=== PATIENT | male | born 1970 | race Caucasian/White ===

== ENCOUNTER 2016-08-28 05:59 | Inpatient (IN) | payer OTHER ==
--- NOTE | 2016-08-26 21:53 | GHP ---
[f rep st] PREOP HISTORY AND PHYSICAL Amended report DATE OF ADMISSION: 08/28/2016 ADMISSION DIAGNOSIS: Severe right hip degenerative arthritis. HISTORY OF PRESENT ILLNESS: The patient is a 45-year-old male who will be admitted for a right hip resurfacing arthroplasty with Dr. Marie at the [facility] on August 28, 2016. The patient has had progressive right hip pain over the past several years. In 2010, the patient underwent a left hip resurfacing arthroplasty with a very good result. Because of his progressive pain, advanced arthritis, and recalcitrant response to conservative therapies, the patient has decided to proceed with the hip resurfacing arthroplasty. PAST MEDICAL HISTORY: Noncontributory. No history of PE, DVT, CAD or previous MRSA infection. He does have a history of elevated cholesterol. CURRENT PRESCRIPTION MEDICATIONS: None. OVER THE COUNTER MEDICINES: Aleve, niacin, omega-3, vitamin E and red yeast rice. ALLERGIES: He has no known drug allergies. SOCIAL HISTORY: The patient is . 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 No history of tobacco use. Moderate alcohol use. His activities include hiking, biking, skiing, surfing and golf. FAMILY HISTORY: Noncontributory. PAST SURGICAL HISTORY: Left hip resurfacing arthroplasty in 2010. PHYSICAL EXAMINATION: GENERAL: He is a healthy-appearing 45-year-old male. VITALS: Height 5 feet 8 inches tall, weight 168 pounds. BMI 25.5. HEENT: Head is normocephalic, atraumatic. Eyes are PERRLA. Conjunctivae and sclerae are clear. Mouth: He has good oral hygiene without any loose teeth. HEART: Regular rate and rhythm without murmurs, gallops, rubs. LUNGS: Clear. EXTREMITIES: Pertinent findings are limited to the patient's right hip. He has full right hip extension, 90 degrees of flexion, 0 degrees of internal rotation, 20 degrees of external rotation, and 30 degrees of abduction. DIAGNOSTIC IMAGING: Recent x-rays taken of the patient's right hip shows bone- on-bone degenerative arthritis with increased subchondral sclerosis, peripheral osteophyte formation, and a few subcortical cyst formation. IMPRESSION ON ADMISSION: Severe [id number] degenerative arthritis of the right hip. PLAN: The plan will be for the patient to undergo a right hip resurfacing arthroplasty with Dr. Marie. The surgery has been described to the patient including the risks, benefits, and expectations. He understands the controversy surrounding metal on metal bearing surfaces. He understands the risk of dislocation, sciatic nerve injury, and infection. All his questions have been answered. He consents to surgery here in the office today. Copy requested to: [facility] JOSE G Sprague /[id number]/MODL Add acc#, 08/27/16, jason [place]
[~2016-08-28 05:59] MED LIST: LIDOCAINE 1% 2 ML INJ ONE
[2016-08-28] MEDS ORDERED: DEXAMETHASONE 4 MG/ML VIAL IVP ONE (06:00)
[2016-08-28] MEDS ORDERED: POVIDONE-IODINE 20 ML in SODIUM CL IRRIG SOLUTION 500 ML IRR ONE (06:00)
[2016-08-28] MEDS ORDERED: ACETAMINOPHEN 325 MG TAB PO ONE (06:00)
[2016-08-28] MEDS ORDERED: CHLORHEXIDINE GLUC HIBICLENS 118 ML BTL TP ONE (06:00)
[2016-08-28] MEDS ORDERED: CEFAZOLIN 2 GM/DEXTR 100 ML IV ONE (06:00)
[2016-08-28] MEDS ORDERED: TRANEXAMIC ACID 1,500 MG in NS 100 ML IV ONE (06:00)
[2016-08-28] MEDS ORDERED: FAMOTIDINE 20 MG TAB PO ONE (06:00)
[2016-08-28] MEDS ORDERED: ROPI/epiNEPH/KETOROLAC JOINT COCKTAIL IU ONE (06:00)
[2016-08-28] MEDS ORDERED: LR 1,000 ML IV ONE (06:05)
[2016-08-28] MEDS ORDERED: LIDOCAINE 1% 5 ML SDV ID PRN (06:05)
[2016-08-28] MEDS ORDERED: fentaNYL 100 MCG/2 ML INJ ONE (06:48)
[2016-08-28] MEDS ORDERED: PROPOFOL/EMULSION 500 MG/50 ML BOTTLE IV ONE (06:49)
[2016-08-28] MEDS ORDERED: MIDAZOLAM 2 MG/2 ML VIAL ONE ×2 (06:49→07:10)
[2016-08-28] MEDS ORDERED: SKIN ADHESIVE (DERMABOND) 1 EACH TP ONE (06:50)
[2016-08-28] MEDS ORDERED: ceFAZolin 1 GM/5 ML SYR ONE (06:51)
[2016-08-28] MEDS ORDERED: PHENYLEPHRINE HCL 100 MCG/ML SYR ONE (07:56)
[2016-08-28] MEDS ORDERED: ONDANSETRON 4 MG/2 ML VIAL ONE (07:56)
[2016-08-28] MEDS ORDERED: PROPOFOL 200 MG/20 ML VIAL ONE (08:35)
--- NOTE | 2016-08-28 08:58 | POSTOPPROG ---
Post Op Note Date of Operation: 08/28/16 Surgeon: Cody Marie Pluck Trimmer: Sreekanth Anesthesiologist: Marek Anesthesia: IV Sedation, Spinal Post-op Diagnosis: R hip arthritis Procedure: R BHR Inf/Abcess present in the surg proc area at time of surgery?: No EBL: 100-500
[2016-08-28] MEDS ORDERED: KETOROLAC 30 MG/1 ML SDV IVP PRN (09:08)
[2016-08-28] MEDS ORDERED: POLYETHYLENE GLYCOL 3350 17 GM PKT PO PRN (09:08)
[2016-08-28] MEDS ORDERED: CYCLOBENZAPRINE 10 MG TAB PO PRN (09:08)
[2016-08-28] MEDS ORDERED: PROMETHAZINE HCL 25 MG SUPPR PR PRN (09:08)
[2016-08-28] MEDS ORDERED: ONDANSETRON 4 MG/2 ML VIAL IVP PRN (09:08)
[2016-08-28] MEDS ORDERED: DIPHENOXYLATE/ATROPINE LOMOTIL 1 TAB PO PRN (09:08)
[2016-08-28] MEDS ORDERED: METOCLOPRAMIDE 10 MG/2 ML VIAL IVP PRN (09:08)
[2016-08-28] MEDS ORDERED: MAGNESIUM HYDROXIDE 30 ML UDCUP PO PRN (09:08)
[2016-08-28] MEDS ORDERED: diphenhydrAMINE 25 MG CAP PO PRN (09:08)
[2016-08-28] MEDS ORDERED: PHARMACY PAIN CONSULT 1 EA MISC PRN (09:08)
[2016-08-28] MEDS ORDERED: NS 500 ML IV PRN (09:08)
[2016-08-28] MEDS ORDERED: ONDANSETRON DISINTEGRATING 4 MG TAB PO PRN (09:08)
[2016-08-28] MEDS ORDERED: traMADol 50 MG TAB PO PRN (09:08)
[2016-08-28] MEDS ORDERED: LACTULOSE 20 GM/30 ML UDCUP PO PRN (09:08)
[2016-08-28] MEDS ORDERED: TEMAZEPAM 15 MG CAP PO PRN (09:08)
[2016-08-28] MEDS ORDERED: BISACODYL 10 MG SUPP PR PRN (09:08)
[2016-08-28] MEDS ORDERED: LR 1,000 ML IV SCH (09:30)
--- NOTE | 2016-08-28 10:02 | GOP ---
[f rep st] OPERATIVE REPORT DATE OF OPERATION: 08/28/2016 SURGEON: Cody Marie MD BURNER OPERATOR: Armando Naqvi. Mamadou Salinas. ANESTHESIA: Combination of Marcaine spinal, and IV sedation. ANESTHESIOLOGIST: Dr. Kiana Jara. PREOPERATIVE DIAGNOSIS: Right hip severe degenerative arthritis. POSTOPERATIVE DIAGNOSIS: Right hip severe degenerative arthritis. PROCEDURE PERFORMED: Right hip Yariel hip resurfacing arthroplasty. FINDINGS: ESTIMATED BLOOD LOSS: About 300 mL. I used a Sa[employer]hew [place] hip resurfacing system. The acetabular component was 56 mm in diameter and press fit. The femoral head was 50 mm and cemented. He was awakened from anesthesia a nd rolled to the supine position on his [facility]. A long-leg compressive stocking and SCD we re applied to the operative leg. He wore a stocking and SCD on the opposite leg during the procedur e. An abduction pillow was placed between his knees. He was taken to PACU in satisfactory conditio n. There were no recognized intraoperative complications. The sponge and needle count were correct on 2 occasions. Armando Naqvi and Mamadou Salinas acted as surgical assistants. Their assistance was a medical aime putnam. DESCRIPTION OF PROCEDURE: The patient was given 2 g of IV Ancef preoperatively within 60 minutes of surgery. He also received IV tranexamic acid at a dose of 20 mg/kg. He was placed on the [facility] g room table and given spinal anesthesia with Marcaine by Dr. Jara. He was then placed supine an d given IV sedation. A Martinez catheter was not used. He wore a compressive stocking and SCD on the nonoperative leg. He was rolled to left lateral decubitus position. An axillary roll was used and all pressure points were carefully padded. The position was secured with the pegboard table attachm ent. I was careful to lock his pelvis in a vertical position. His perineum was isolated with plast ic adhesive drapes. The right hip and right lower extremity were prepped with ChloraPrep. They wer e draped free using sterile sheets, stockinette, and Ioban plastic drape. The [employer] time-out was performed to verify the correct patient identity and the correct surgical side and site. The [place] time-out was also performed. I made a 6-7 inch straight oblique posterolateral hip skin incision. The subcutaneous tissues were sharply divided and hemostasis was obtained using electrocautery. The fascia isabelle was identified an d split along the axis of its fibers. I then curved posteriorly and proximally and split the fascia of the gluteus faith and bluntly split the muscle fibers in line with their orientation. His sci atic nerve was identified and protected throughout the procedure. The Charnley self-retaining retra ctor was inserted. The external rotators and the posterior hip capsule were divided as separate lay ers at the base of the femoral neck, tagged, and reflected posteriorly. The gluteus faith was div ided and tagged in order to improve exposure and release tension on the sciatic nerve. The hip was dislocated posteriorly. I used a sizing gauge to check the diameter of the neck and concluded that 50 mm was the proper head size. I performed a circumferential capsulotomy. I was able to retract t he femoral head anteriorly and superiorly and hold it out of place with appropriate retractors. The remnant of his damaged labrum was completely excised. His acetabulum was reamed sequentially up to 56 mm. I selected the [place] monoblock porous-coated acetabular component with an outside diam eter of 56 mm. This was firmly impacted and was a very tight fit. I was careful to determine prope r inclination and anteversion. I used the transverse acetabular ligament and other acetabular bony landmarks to help me determine proper cup orientation. Osteophytes were removed with a rongeur and osteotome. I was careful to leave a good lip of bone and capsule extending beyond the anterior-infe rior lip of the metal cup. I then returned to preparation of the femoral head. Using appropriate jigs and guides, I inserted a guide pin into the femoral head and neck. I was careful to position in such a way that there would be no notching of the neck. The large sterile metal goniometer was used to check the neck shaft an gle. I reamed over the guide pin and inserted the reaming guide. I then used the cylindrical reame r down to the head and neck junction. This was followed by the flat reamer and the chamfer reamer. The head was sized for 50 mm. There was no impingement or damage to the neck. He had large anteri or neck osteophytes, which were removed with a rongeur. I drilled a small hole in the lesser trocha nter and inserted a suction cannula to create negative pressure in the medullary canal. Small holes were drilled on the flattened chamfer surfaces of the prepared head for cement anchors. The head w as thoroughly cleaned with the pulsating lavage and carefully dried. I used the CarboJet device to blow dry the cancellous surfaces. A single batch of Simplex cement with tobramycin was mixed. At a bout 50 seconds, I poured the liquid cement into the head component, inserted on the femoral head an d impacted it into place. Excess cement was removed before it hardened. The acetabulum was irrigat ed, cleaned and inspected, and the hip was reduced. Stability and range of motion were checked. I placed my finger along the anterior aspect of the acetabular component and flexed the hip to 110 deg [place]. There was no residual anterior neck impingement. The suction cannula on the lesser trochante r was removed. The wound was thoroughly irrigated with a dilute Betadine solution. 40 mL of the cindy int anesthetic cocktail was injected in the capsule, the deep musculature, and the subcutaneous tiss ues along the skin edges. His sciatic nerve was reinspected and looked unharmed. The external rotators and the posterior hip capsule were divided in separate layers with two #2 FiberWire sutures through drill holes in the gre ater trochanter. This provided a strong posterior capsular and external rotator repair. The gluteu s faith was repaired with 2 interrupted [id number] #2 FiberWire sutures. The fascia isabelle was closed first with 2 interrupted [id number] #2 FiberWire sutures, followed by a running #2 ricardo ed Ethicon Stratafix PDO suture. The subcutaneous tissues were closed with a running 0 barbed Ethic on Stratafix Monoderm suture. The skin was closed with a running 3-0 barbed Ethicon Stratafix Monod erm subcuticular suture. The skin edges were reapproximated and sealed with Dermabond glue. The wo und was covered with a strip of Telfa, and everything was held in place with a piece of clear plasti c Tegaderm. Copy requested to: [facility] /[id number]/MODL
[2016-08-28] MEDS: ACETAMINOPHEN 325 MG TAB PO SCH ×3 (11:30→23:52)
[2016-08-28] MEDS: TRANEXAMIC ACID 650 MG TAB PO SCH ×3 (13:28→23:52)
[2016-08-28] MEDS: ceFAZolin 2 GM/DEXTROSE 100 ML IV SCH ×2 (15:39→23:57)
[2016-08-28] MEDS: oxyCODONE IR 5 MG TAB PO PRN ×3 (16:56→21:10)
[2016-08-28] MEDS: SENNOSIDES/DOCUSATE SODIUM TAB PO SCH (21:07)
[2016-08-28] MEDS: FAMOTIDINE 20 MG TAB PO SCH (21:07)
[2016-08-28] MEDS: ASPIRIN 325 MG TAB PO SCH (21:07)
[2016-08-29] MEDS: oxyCODONE IR 5 MG TAB PO PRN ×3 (02:24→09:45)
[2016-08-29 04:03] VITALS: TEMP 97.9
[2016-08-29 05:34] LABS: HEMATOCRIT 40.2 % (40.0-51.0); HEMOGLOBIN 14.1 g/dL (13.7-17.5)
[2016-08-29] MEDS: ACETAMINOPHEN 325 MG TAB PO SCH (05:55)
[2016-08-29 07:14] VITALS: BP 95/64; PULSE 85; RESP 14; O2SAT 97
--- NOTE | 2016-08-29 07:45 | SOAPPROG ---
SOAP Progress Note Assessment/Plan: Assessment: Afebrile. Mild pain. Dsg is dry. Sciatic nerve intact. H/H is good. Films look good. Plan: Up with PT. DC later today. 08/29/16 07:44A Objective: Vital Signs Temp Pulse Resp BP Pulse Ox 36.6 C 85 14 95/64 L 97 08/29/16 07:13 08/29/16 07:13 08/29/16 07:13 08/29/16 07:13 08/29/16 07:13 Laboratory Results 08/29/16 05:20 08/28/16 08/29/16 08/30/16 05:59 05:59 05:59 Intake Total 3605 Output Total 1425 400 Balance 2180 -400 ICD10 Worksheet Patient Problems: Problems Problem Status Onset Osteoarthritis of right hip Acute
--- NOTE | 2016-08-29 08:10 | GDS ---
[f rep st] DISCHARGE SUMMARY ADMISSION DIAGNOSIS: Right hip degenerative arthritis. DISCHARGE DIAGNOSIS: Right hip degenerative arthritis. NAME OF PROCEDURE: Right hip Yariel hip resurfacing arthroplasty. POSTOPERATIVE COMPLICATIONS: None. CONDITION ON DISCHARGE: Improved. DESCRIPTION OF HOSPITAL COURSE: The patient was admitted to the hospital on the morning of surgery. His admission CBC was normal. The same day under a combination of Marcaine spinal and IV sedation , he underwent a right hip Yariel hip resurfacing arthroplasty. Postoperatively, he was treated with multimodal DVT prophylaxis including aspirin and early mobilization. On the first postoperati ve day, his hemoglobin and hematocrit were 14.1 and 40.2. He was seen by Physical Therapy and made excellent progress with ambulation. By the time of discharge, he was afebrile, his dressing was dry , and he was independent walking. DISPOSITION: The patient lives in [place]. He is going to stay in town until his office appointm ent on September 02. He may progress to full weightbearing on the right as tolerated. Continue OCTAVIA sto ckings for 1 week. Continue aspirin 325 mg p.o. daily for 21 days. He has prescriptions for oxycod one and tramadol for pain control. If there are any problems, he is to call me at the office. Copy requested to: [facility] JOSE G Sprague /[id number]/SHERONL
[2016-08-29] MEDS ORDERED: FERROUS SULFATE 140 MG TAB.ER PO SCH (09:00)
[2016-08-29] MEDS: SENNOSIDES/DOCUSATE SODIUM TAB PO SCH (09:45)
[2016-08-29] MEDS: ASPIRIN 325 MG TAB PO SCH (09:45)
[2016-08-29] MEDS: FAMOTIDINE 20 MG TAB PO SCH (09:46)
== END 2016-08-29 12:03 | disposition home or self-care (01) | DRG 470 ==
LOC: F3N 05:59
PROVIDERS: ADMIT Orthopaedic Surgery; ATTEND Orthopaedic Surgery
PROC: 0SU90BZ Supplement Right Hip Joint with Resurfacing Device, Open Approach (ICD-10-PCS; principal; 2016-08-28 07:15)
DX: M16.11 Unilateral primary osteoarthritis, right hip (principal)
CPT/HCPCS: 97110-GP; 97116-GP; 97161-GP; 97165-GO; 97530-GP; C1713; C1769; J0171; J0690; J1100; J1885; J2250; J2370; J2405; J2704; J2795; J3010